=== PATIENT | male | born 1965 | race Caucasian/White ===

== ENCOUNTER 2019-01-10 22:06 | Observation (INO) | payer OTHER ==
[2019-01-10] MEDS ORDERED: SODIUM CHLORIDE 0.9% 1000 ML INFUS.BAG IV ONE (22:23)
[2019-01-10 22:51] LABS: BASO % 0.6 % (0-2.0); HEMOGLOBIN 13.4 GM/dL (11.7-16.9); LYMPH % 20.3 % (8-40); MCH 29.8 pg (25.7-33.7); MCHC 33.5 g/dl (32.0-35.9); MEAN PLT VOLUME 10.3 fl (7.5-11.1); MONO % 5.6 % (3.8-10.2); NEUT % 72.5 % (42.8-82.8); PLATELET COUNT 188 K/MM3 (134-434); RBC 4.49 M/mm3 (4.00-5.60); RDW 14.2 % (11.9-15.9); WHITE BLOOD COUNT 7.6 K/mm3 (4.0-10.0)
[2019-01-10] MEDS ORDERED: SODIUM CHLORIDE 0.9% 500 ML INFUS.BAG IV ONE (22:58)
[2019-01-10 23:04] LABS: INR 1.02 (0.83-1.09)
--- NOTE | 2019-01-10 23:27 | PDOC ---
History of Present Illness - General Chief Complaint: Syncope/Near Syncope Stated Complaint: PASSED OUT Time Seen by Provider: 01/10/19 22:46 History Source: Patient, Spouse Exam Limitations: No Limitations - History of Present Illness Initial Comments: 01/10/19 23:18 53M w/ pmh of HTN, HLD BIBA after losing consciousness w/ tremors, diaphoresis, jaw clenching at ~ 2100 at the dinner table. Episode was witnessed by the family members. No twitching of upper or lower extremities. As per discussion with 911, the daughter initiated chest compressions. Patient states that he was feeling lightheaded prior to LOC. Denies ALEJANDRO, dizziness, palpitations, SOB, CP. Had one prior episode of tremors w/ LOC ~15ys prior. Does not see a neurologist. Denies sick contacts. Denies significant cardiac history. No new medications Associated Symptoms: denies: chest pain, cough, diaphoresis, fever/chills, headaches, malaise, nausea/vomiting, shortness of breath, syncope Past History - Travel Traveled outside of the country in the last 30 days: No Close contact w/someone who was outside of country & ill: No - Past Medical History Allergies/Adverse Reactions: Allergies Allergy/AdvReac Type Severity Reaction Status Date / Time Penicillins Allergy Verified 01/10/19 22:34 Home Medications: Ambulatory Orders Fexofenadine HCl [Sue Allergy] 180 mg PO HS 01/10/19 Lisinopril [Prinivil] 20 mg PO DAILY 01/10/19 Anemia: No Asthma: No Cancer: No Cardiac Disorders: No CVA: No COPD: No CHF: No Dementia: No Diabetes: No GI Disorders: No Disorders: No HTN: Yes Hypercholesterolemia: Yes Liver Disease: No Seizures: No Thyroid Disease: No - Surgical History Abdominal Surgery: No - Family Disease History Family Disease History: Diabetes: Mother (HTN, breast CA), Heart Disease: Sister (heart disease), CA: Mother, Other: Mother - Suicide/Smoking/Psychosocial Hx Smoking History: Former smoker Hx Alcohol Use: No Drug/Substance Use Hx: No Substance Use Type: None Hx Substance Use Treatment: No Review of Systems - Review of Systems Able to Perform ROS?: Yes Is the patient limited Ecuadorean proficient: No Constitutional: Yes: Diaphoresis, Unexplained wgt Loss (20lbs in 2mo). No: Chills, Fever, Weakness HEENTM: No: Blurred Vision, Double Vision Respiratory: No: Cough, Shortness of Breath, SOB at Rest, Wheezing Cardiac (ROS): No: Chest Pain, Irregular Heart Rate, Palpitations ABD/GI: No: Constipated, Diarrhea, Nausea, Vomiting : No: Burning, Dysuria, Hematuria Musculoskeletal: No: Back Pain, Muscle Weakness Neurological: Yes: Tremors. No: Headache, Numbness, Unsteady Gait, Dizziness *Physical Exam - Vital Signs Last Vital Signs Temp Pulse Resp BP Pulse Ox 97.4 F L 57 L 18 110/81 100 01/10/19 22:15 01/10/19 22:15 01/10/19 22:15 01/10/19 22:15 01/10/19 22:35 - Physical Exam General Appearance: No: Apparent Distress HEENT: negative: Scleral Icterus (R), Scleral Icterus (L) Neck: positive: Supple. negative: Carotid bruit, Lymphadenopathy (R), Lymphadenopathy (L) Respiratory/Chest: positive: Lungs Clear, Normal Breath Sounds. negative: Respiratory Distress, Labored Respiration, Crackles, Rales, Stridor, Wheezing Cardiovascular: positive: Regular Rate, S1, S2, Bradycardia (HR 57). negative: Edema, Murmur, Tachycardia Gastrointestinal/Abdominal: positive: Soft. negative: Distended, Guarding Extremity: negative: Coldness, Pedal Edema Integumentary: positive: Dry, Warm Neurologic: positive: internal control consultant II-XII NML intact, Fully Oriented, Alert, Motor Strength 5/5. negative: Facial Droop, Numbness, Sensory Deficit, Finger to Nose , Confused ED Treatment Course - LABORATORY CBC & Chemistry Diagram: 01/10/19 22:44 01/10/19 22:44 - ADDITIONAL ORDERS Additional order review: Laboratory Results 01/10/19 22:44 PT with INR 12.00 INR 1.02 01/10/19 22:44 RBC 4.49 MCV 89.0 MCHC 33.5 RDW 14.2 MPV 10.3 Neutrophils % 72.5 Lymphocytes % 20.3 Monocytes % 5.6 Eosinophils % 1.0 Basophils % 0.6 - RADIOLOGY Radiology Studies Ordered: Category Date Time Status HEAD CT WITHOUT CONTRAST [CT] Stat CT Scan 01/10/19 22:57 Ordered - Medications Given in the ED: ED Medications Discontinued Medications Generic Name Dose Route Start Last Admin Trade Name Leonila PRN Reason Stop Dose Admin Sodium Chloride 1,000 ml 01/10/19 22:23 01/10/19 22:31 Normal Saline - IV 01/10/19 22:24 1,000 ml ONCE ONE Administration Medical Decision Making - Medical Decision Making 01/10/19 23:42 53M w/ HTN, HLD BIBA after witnessed syncope vs seizure lasting ~5mins - CBC -- no abn - CMP -- no abn - EKG -- sinus bradycardia - CXR -- no abn - fu CT Head 01/11/19 00:24 - Neurology paged - Fish Admitting paged 01/11/19 00:45 - CT Head -- prelim read for intracranial pathology - Fish On-Call awaiting Neurology call-back prior to accepting admission 01/11/19 00:57 - Neuro(Carmenza) agrees with tele admit, recommends MRI brain tomorrow. *DC/Admit/Observation/Transfer Diagnosis at time of Disposition: Seizure - Discharge Dispostion Condition at time of disposition: Stable Decision to Admit order: Yes - Referrals - Patient Instructions - Post Discharge Activity
[2019-01-10 23:29] LABS: ALBUMIN 3.9 g/dl (3.4-5.0); BILIRUBIN,TOTAL 0.3 mg/dL (0.2-1); BLOOD UREA NITROGEN 25.8 mg/dL (7-18); CALCIUM 8.6 mg/dL (8.5-10.1); POTASSIUM 3.9 mmol/L (3.5-5.1); TOT PROT 7.4 g/dl (6.4-8.2)
--- NOTE | 2019-01-11 00:40 | PN ---
Teaching Attending Note Name of Resident: Uvaldo Horan ATTENDING PHYSICIAN STATEMENT I saw and evaluated the patient. I reviewed the resident's note and discussed the case with the resident. I agree with the resident's findings and plan as documented. SUBJECTIVE: Patient is a 53 year old man with a PMH of HTN, Penicillin allergy and HLD who presents to the ER for dizziness after witnessed syncopal episode. 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 No twitching of upper or lower extremities. As per discussion with 911, the daughter initiated chest compressions. Patient states that he was feeling lightheaded prior to LOC. No associated fecal or urinary incontinence. As per , the patient is at his baseline now. The patient denies chest pain, shortness of breath, headache. Denies fever, chills, cough, nausea, vomiting, diarrhea and constipation. Denies dysuria, frequency, urgency and hematuria. No recent travel or sick contacts and denies illicit drug use or alcohol abuse. Patient has a family history of Epilepsy, DM, heart disease and breast cancer. OBJECTIVE: Alert and not orthostatic Vital Signs Period Temp Pulse Resp BP Sys/Montoya Pulse Ox Last 24 Hr 97.4 F 57-60 18 110-118/69-81 100-100 HEENT: No Jaundice, eye redness or discharge, PERRLA, EOMI. Normocephalic, atraumatic. External ears are normal and hearing is grossly intact. No nasal discharge. Neck: Supple, nontender. No palpable adenopathy or thyromegaly. No JVD Chest: Good effort. Clear to auscultation and percussion. Heart: Regular. No S3, rub or murmur Abdomen: Not distended, soft, nontender and no HSM. No rebound or guarding. Normal bowel sounds. Ext: Peripheral pulses intact. No leg edema. Skin: Warm and dry. No petechiae, rash or ecchymosis. Neuro: Alert. Oriented x3. CN 2-12 grossly intact. Sensation grossly intact in all four extremities and DTR are symmetric. Plantar reflexes are flexor. Normal gait. Psych: Appropriate mood and affect. Good insight. Home Medications Medication Instructions Recorded Fexofenadine HCl [Sue Allergy] 180 mg PO HS 01/10/19 Lisinopril [Prinivil] 20 mg PO DAILY 01/10/19 Abnormal Lab Results 01/10/19 22:44 BUN 25.8 H ASSESSMENT AND PLAN: 1. Syncope - History suggestive of a seizure. No acute pathology on preliminary reading of noncontrast head CT scan. No acute pathology on CXR. EKG shows sinus bradycardia with no significant ST-T wave changes. Will monitor him on telemetry , load him with Keppra; get carotid doppler, EEG, brain MRI/MRA, urine toxicology, ECHO and implement seizure and fall precautions. Do neurochecks. Consult neurology. 2. Hypertension - Restart suitable outpatient antihypertensive drugs when clinically appropriate. 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 Nonpharmacologic measures to control hypertension like weight loss , salt restriction and exercise discussed. Importance of adherence to treatment regimen and attainment of normotension emphasized. 3. DVT prophylaxis - Lovenox 40 mg SQ q 24 hours. 4. Advance directives - Full code
--- NOTE | 2019-01-11 01:14 | PDOC ---
Documentation entered by Claudia Franco SCRIBE, acting as scribe for Soni Ybarra MD. Soni Ybarra MD: This documentation has been prepared by the Salvador vergara Xhesika, SCRIBE, under my direction and personally reviewed by me in its entirety. I confirm that the documentation accurately reflects all work, treatment, procedures, and medical decision making performed by me. Attending Attestation - Resident Resident Name: Leonel Jacinto - ED Attending Attestation I have performed the following: I have examined & evaluated the patient, The case was reviewed & discussed with the resident, I agree w/resident's findings & plan, Exceptions are as noted - HPI HPI: 01/10/19 22:52 The patient is a 53 year old male with a significant PMH of who presents to the emergency department for dizziness s/p witnessed syncopal episode. 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 As per , the patient is at his baseline now. The patient denies chest pain, shortness of breath, headache. Denies fever, chills, cough, nausea, vomiting, diarrhea and constipation. Denies dysuria, frequency, urgency and hematuria. Allergies: Penicillins PCP: Patrizia Self - Physicial Exam PE: 01/11/19 01:07 awake alert lungs clear bilat heart rrr no mrg abd soft nt nd ext wwp no edema. no calf tenderness. head atraumatic. nuero alert oriented x 3. speech clear. 5/ 5 all four ext. 01/11/19 01:08 - Medical Decision Making 01/11/19 01:08 53 yo F M h/o HTN here with syncopal/ seizure episode. per pt they were eating dinner he was seated, suddenly head went back. had stiffeing of muscles that lasted few minutes. called 911 told her to open his mouth, when attempted mouth was stiff. following pt was sleepy and confused for while now at baseline. had similar episode 15 yrs prior, never saw nuerologist. had fu at a clinic wi EKG. presumably felt to be syncope at that time. no incontinence. just prior to event he described vision going black, and feeling like he lost control of his head with dizziness. differential siezure,/ syncope. plan ct head labs tele, ekg. ua tox screen. ct head negative. d/w dr howell, recommend mRI labs ua u tox. admited. signed out to admin team
--- NOTE | 2019-01-11 02:02 | HP ---
CHIEF COMPLAINT: loss of consciousness HISTORY OF PRESENT ILLNESS: Patient is a 53 yo M with a PMHx of HTN, HLD, BIBA for loss of consciousness while eating dinner with his family. He says he felt light headed and started blacking out about 5 minutes before the incident. He told his before he lost consciousness that he was not feeling well. His said he was down for at least 3 minutes. She denies shaking movements, tongue biting, or loss of bladder control. She said his eyes rolled back, and his jaw was very stiff. She does not recall if his arms were stiff. She also said he was very diaphoretic. She said after he regained consciousness, he was confused afterwards. He said a very similar event happened to him about 15 years ago but was told everything was ok. He currently denies symptoms. Denies CP, sob, nausea, vomiting, palpitations, dizziness, urinary symptoms, numbness, tingling, visual changes. Patient does not see a neurologist. In the ED he was given [address] Herr called and said he will see him in the morning. He recommended BRAIN Mri. Head Ct was unremarkable for acute changes. 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 When asked, says he works around [employer]. Family History: NIECE WITH EPILEPSY Allergies Penicillins Allergy (Verified 01/10/19 22:34) HOME MEDICATIONS: Home Medications Medication Instructions Recorded Fexofenadine HCl [Sue Allergy] 180 mg PO HS 01/10/19 Lisinopril [Prinivil] 20 mg PO DAILY 01/10/19 REVIEW OF SYSTEMS CONSTITUTIONAL: Absent: fever, chills, diaphoresis, generalized weakness, malaise, loss of appetite, weight change HEENT: Absent: rhinorrhea, nasal congestion, throat pain, throat swelling, difficulty swallowing, mouth swelling, ear pain, eye pain, visual changes CARDIOVASCULAR: Absent: chest pain, syncope, palpitations, irregular heart rate, lightheadedness , peripheral edema RESPIRATORY: Absent: cough, shortness of breath, dyspnea with exertion, orthopnea, wheezing, stridor, hemoptysis GASTROINTESTINAL: Absent: abdominal pain, abdominal distension, nausea, vomiting, diarrhea, constipation, melena, hematochezia GENITOURINARY: Absent: dysuria, frequency, urgency, hesitancy, hematuria, flank pain, genital pain NEUROLOGIC: dizziness, mental status changes Absent: headache, focal weakness or paresthesias, unsteady gait, seizure, bladder or bowel incontinence PHYSICAL EXAMINATION Vital Signs - 24 hr 01/10/19 01/10/19 01/10/19 22:15 22:35 23:47 Temperature 97.4 F L Pulse Rate 57 L Pulse Rate [ 60 Right Radial] Respiratory 18 Rate Blood Pressure 110/81 Blood Pressure 118/69 [Left Arm] O2 Sat by Pulse 100 100 100 Oximetry (%) GENERAL: a/o x 3, slow to answer questions. HEAD: Normal with no signs of trauma. EYES: Pupils equal, round and reactive to light, extraocular movements intact, injected conjunctica (says its chronic from allergies) EARS, NOSE, THROAT: oropharynx clear without exudates. Moist mucous membranes. NECK: supple without lymphadenopathy, JVD, or masses. LUNGS: Breath sounds equal, clear to auscultation bilaterally. No wheezes, and no crackles. No accessory muscle use. HEART: RRR, no MGR ABDOMEN: Soft, nontender, not distended, normoactive bowel sounds, no guarding, no rebound, no masses. LOWER EXTREMITIES: 2+ pulses, warm. No peripheral edema. NEUROLOGICAL: Cranial nerves II-XII intact. Walked patient, normal gait Laboratory Results - last 24 hr 01/10/19 01/10/19 01/10/19 22:44 22:44 22:44 WBC 7.6 RBC 4.49 Hgb 13.4 Hct 40.0 MCV 89.0 MCH 29.8 MCHC 33.5 RDW 14.2 Plt Count 188 MPV 10.3 Absolute Neuts (auto) 5.5 Neutrophils % 72.5 Lymphocytes % 20.3 Monocytes % 5.6 Eosinophils % 1.0 Basophils % 0.6 Nucleated RBC % 0 PT with INR INR Sodium 141 Potassium 3.9 Chloride 106 Carbon Dioxide 27 Anion Gap 8 BUN 25.8 H Creatinine 1.0 Est GFR (CKD-EPI)AfAm 97.77 Est GFR (CKD-EPI)NonAf 84.35 Random Glucose 106 Calcium 8.6 Total Bilirubin 0.3 AST 23 ALT 28 Alkaline Phosphatase 69 Creatine Kinase 191 Creatine Kinase Index 1.1 CK-MB (CK-2) 2.2 Troponin I < 0.02 Total Protein 7.4 Albumin 3.9 01/10/19 22:44 WBC RBC Hgb Hct MCV MCH MCHC RDW Plt Count MPV Absolute Neuts (auto) Neutrophils % Lymphocytes % Monocytes % Eosinophils % Basophils % Nucleated RBC % PT with INR 12.00 INR 1.02 Sodium Potassium Chloride Carbon Dioxide Anion Gap BUN Creatinine Est GFR (CKD-EPI)AfAm Est GFR (CKD-EPI)NonAf Random Glucose Calcium Total Bilirubin AST ALT Alkaline Phosphatase Creatine Kinase Creatine Kinase Index CK-MB (CK-2) Troponin I Total Protein Albumin ASSESSMENT/PLAN: 53 yo M with a PMHx of HTN, HLD, BIBA for loss of consciousness #Syncope -r/o Seizure -hx of similar episode in the past, niece with epilepsy -Head CT unremarkable -MRI brain w/ contrast ordered -Neuro consulted: Dr. Herr -EEG -Loading dose of keppra 1000mg ONE TIME -Seizure precautions -Urine toxicology -echo -carotids -tele monitoring -neuro checks q1h -repeat 2nd set trops -negative orthostats (after fluids given) #HTN -cont home meds #FEN -no iv fluids -monitor lytes -sodium diet #Dvt -lovenox Visit type - Emergency Visit Emergency Visit: Yes ED Registration Date: 01/11/19 Care time: The patient presented to the Emergency Department on the above date and was hospitalized for further evaluation of their emergent condition. - New Patient This patient is new to me today: Yes Date on this admission: 01/13/19 - Critical Care Critical Care patient: No ATTENDING PHYSICIAN STATEMENT I saw and evaluated the patient. I reviewed the resident's note and discussed the case with the resident. I agree with the resident's findings and plan as documented. SUBJECTIVE: OBJECTIVE: ASSESSMENT AND PLAN:
[2019-01-11] MEDS ORDERED: levETIRAcetam 500 MG TABLET (FP) PO ONE (02:32)
[2019-01-11 04:23] VITALS: BMI 29.5
[2019-01-11] MEDS: ENOXAPARIN NA (PORCINE) 40 MG/0.4 ML DISP.SYRIN SQ SCH (09:10)
[2019-01-11] MEDS: LISINOPRIL 20 MG TABLET (FP) PO SCH (09:10)
--- NOTE | 2019-01-11 09:13 | CON.NEURO ---
Consult Consult Specialty:: Carmenza Referred by:: ER - History of Present Illness History of Present Illness: 53-year-old right-handed man originally from [place] presents to the ospital yesterday with a chief complaint of an episode of altered sensorium. 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 Patient with a family history of seizure in his knees was on medication patient had a history 3 of episodes similar to this many many years ago. Patient denies any staring episode patient had stiffness in his joke with altered sensorium no shaking no generalized tonic-clonic movement no urinary incontinence no tongue biting. Patient wasprotein to [facility] CAT scan of the head revealed no evidence for acute pathology blood work and chemistries were normal patient was hemodynamically stable patient was admitted to telemetry for further treatment and management overnight no episode of recurrence. - History Source History Provided By: Patient Limitations to Obtaining History: No Limitations - Alcohol/Substance Use Hx Alcohol Use: No - Smoking History Smoking history: Former smoker Have you smoked in the past 12 months: No Home Medications - Allergies Allergies/Adverse Reactions: Allergies Allergy/AdvReac Type Severity Reaction Status Date / Time Penicillins Allergy Verified 01/10/19 22:34 - Home Medications Home Medications: Ambulatory Orders Fexofenadine HCl [Sue Allergy] 180 mg PO HS 01/10/19 Lisinopril [Prinivil] 20 mg PO DAILY 01/10/19 Family Disease History - Family Disease History Family History: Denies (cva) Review of Systems - Review of Systems Neurological: reports: Headache, Incoordination, Numbness Physical Exam-Neuro Vital Signs: Vital Signs Temperature 98.6 F 01/11/19 08:42 Pulse Rate 61 01/11/19 08:42 Respiratory Rate 16 01/11/19 08:42 Blood Pressure 134/79 01/11/19 08:42 O2 Sat by Pulse Oximetry (%) 99 01/11/19 08:42 Constitutional: Yes: Well Nourished Neck: Yes: WNL Labs: CBC, BMP 01/10/19 22:44 01/10/19 22:44 INR, PTT INR 1.02 (0.83-1.09) 01/10/19 22:44 - Neuro Exam Level Of Consciousness: Yes: Oriented to Person, Oriented to Place, Oriented to Time Eyes: Yes: PERRLA Speech: WNL Dominant Hand: Right Cranial Nerves II-XII Intact: Yes Gag: Present DTR's: 1+ Left Bicep, 1+ Right Bicep, 1+ Left Tricep, 1+ Right Tricep Response to light touch: Normal Response to pain prick: Normal Response to temperature: Normal Motor Strength: 3/5: Left Arm, Right Arm, Left Leg, Right Leg Gait: Deferred Imaging - Results Cat Scan: Image Reviewed Problem List - Problems (1) Seizure Assessment/Plan: 1. Neuro checks every 1 hour. 2. MRI of the brain with no contrast seizure protocol. 3. Ativan when necessary seizure. 4. No antiseizure medication. 5. Monitor for cardiac arrhythmia Code(s): R56.9 - UNSPECIFIED CONVULSIONS
--- NOTE | 2019-01-11 12:20 | PN ---
Progress Note, Physician Chief Complaint: He is better now and has no symptoms no dizziness and no fever or chills History of Present Illness: Patient is a 53 yo M with a PMHx of HTN, HLD, BIBA for loss of consciousness while eating dinner with his family. He says he felt light headed and started blacking out about 5 minutes before the incident. He told his before he lost consciousness that he was not feeling well. His said he was down for at least 3 minutes. She denies shaking movements, tongue biting, or loss of bladder control. She said his eyes rolled back, and his jaw was very stiff. She does not recall if his arms were stiff. She also said he was very diaphoretic. She said after he regained consciousness, he was confused afterwards. He said a very similar event happened to him about 15 years ago but was told everything was ok. He currently denies symptoms. Denies CP, sob, nausea, vomiting, palpitations, dizziness, urinary symptoms, numbness, tingling, visual changes. Patient does not see a neurologist. In the ED he was given [address] Herr called and said he will see him in the morning. He recommended BRAIN Mri. Head Ct was unremarkable for acute changes. - Current Medication List Current Medications: Active Medications Enoxaparin Sodium (Lovenox -) 40 mg SQ DAILY [facility] Last Admin: 01/11/19 09:10 Dose: 40 mg Lisinopril (Prinivil) 20 mg PO DAILY [facility] Last Admin: 01/11/19 09:10 Dose: 20 mg - Objective Vital Signs: Vital Signs Temperature 98.6 F 01/11/19 08:42 Pulse Rate 61 01/11/19 08:42 Respiratory Rate 16 01/11/19 08:42 Blood Pressure 134/79 01/11/19 08:42 O2 Sat by Pulse Oximetry (%) 99 01/11/19 08:42 Constitutional: Yes: Well Nourished Eyes: Yes: Conjunctiva Clear HENT: Yes: Atraumatic Neck: Yes: Supple Cardiovascular: Yes: Regular Rate and Rhythm Respiratory: Yes: CTA Bilaterally Gastrointestinal: Yes: Normal Bowel Sounds Breast(s): Yes: WNL Musculoskeletal: Yes: WNL Extremities: Yes: WNL Edema: No Neurological: Yes: WNL Labs: CBC, BMP 01/10/19 22:44 01/10/19 22:44 INR, PTT INR 1.02 (0.83-1.09) 01/10/19 22:44 Problem List - Problems (1) Syncope Assessment/Plan: will do mri of brain and eeg seen dr herr neurologist and d/w pt in in detail his carotid sono is ok and ct head is ok as well d/w his as well Code(s): R55 - SYNCOPE AND COLLAPSE
[2019-01-11 12:48] LABS: URINE APPEARANCE CLEAR; URINE BILIRUBIN NEGATIVE (NEGATIVE); URINE COLOR YELLOW; URINE GLUCOSE (UA) NEGATIVE (NEGATIVE); URINE KETONE NEGATIVE (NEGATIVE); URINE LEUK ESTERASE NEGATIVE (NEGATIVE); URINE NITRITE NEGATIVE (NEGATIVE); URINE PROTEIN NEGATIVE (NEGATIVE); URINE UROBILINOGEN 0.2 mg/dL (0.2-1.0)
[2019-01-11 14:52] LABS: COCAINE, UR NEGATIVE ng/ml (CUTOFF=300); METHADONE, UR NEGATIVE ng/ml (CUTOFF=300); OPIATES, URI NEGATIVE ng/ml (CUTOFF=300); PHENCYCLIDINE,URINE NEGATIVE ng/ml (CUTOFF=25); URINE AMPHETAMINES NEGATIVE ng/ml (CUTOFF=500); URINE BARBITURATES NEGATIVE ng/ml (CUTOFF=200); URINE BENZODIAZEPINES NEGATIVE ng/ml (CUTOFF=200)
[2019-01-12 07:35] LABS: BASO % 0.6 % (0-2.0); EOS % 1.3 % (0-4.5); HEMATOCRIT 39.1 % (35.4-49); HEMOGLOBIN 13.3 GM/dL (11.7-16.9); LYMPH % 29.4 % (8-40); MCH 30.4 pg (25.7-33.7); MCHC 34.2 g/dl (32.0-35.9); MEAN CELL VOLUME 88.8 fl (80-96); MEAN PLT VOLUME 11.3 fl (7.5-11.1); MONO % 6.8 % (3.8-10.2); NEUT % 61.9 % (42.8-82.8); PLATELET COUNT 174 K/MM3 (134-434); RDW 14.5 % (11.9-15.9); WHITE BLOOD COUNT 5.9 K/mm3 (4.0-10.0)
[2019-01-12 07:55] LABS: ALBUMIN 3.3 g/dl (3.4-5.0); ALK PHOS 59 U/L (45-117); ANION GAP 6 MMOL/L (8-16); BILIRUBIN,TOTAL 0.4 mg/dL (0.2-1); BLOOD UREA NITROGEN 18.2 mg/dL (7-18); CALCIUM 8.4 mg/dL (8.5-10.1); CHLORIDE 106 mmol/L (98-107); CO2 30 mmol/L (21-32); GLUCOSE,RANDOM 93 mg/dL (74-106); MAGNESIUM 2.2 mg/dL (1.8-2.4); PHOSPHOROUS 2.8 mg/dL (2.5-4.9); POTASSIUM 4.2 mmol/L (3.5-5.1); SGOT/AST 14 U/L (15-37); SGPT/ALT 24 U/L (13-61); SODIUM 143 mmol/L (136-145); TOT PROT 6.7 g/dl (6.4-8.2)
[2019-01-12] MEDS: ENOXAPARIN NA (PORCINE) 40 MG/0.4 ML DISP.SYRIN SQ SCH (09:12)
[2019-01-12] MEDS: LISINOPRIL 20 MG TABLET (FP) PO SCH (09:13)
--- NOTE | 2019-01-12 11:37 | EKG ---
Test Reason : Blood Pressure : / mmHG Vent. Rate : 057 BPM Atrial Rate : 057 BPM P-R Int : 172 ms QRS Dur : 086 ms QT Int : 434 ms P-R-T Axes : 034 013 026 degrees QTc Int : 422 ms SINUS BRADYCARDIA MINIMAL VOLTAGE CRITERIA FOR LVH, MAY BE NORMAL VARIANT BORDERLINE ECG NO PREVIOUS ECGS AVAILABLE Confirmed by TRACEE MORRIS MD ([id number]) on 01/12/2019 11:37:26 AM Referred By: Confirmed By:TRACEE MORRIS MD
[2019-01-12 13:08] VITALS: BP 149/83; PULSE 71; TEMP 98.5
--- NOTE | 2019-01-12 13:54 | DS ---
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 CBC, [facility] 01/12/19 05:57 01/12/19 05:57 MRI of brain is normal eeg is ordered but pt doesnt want to stay and wants to go home will do out patient and no need for any new medication, he is going to f/u with me in office and will continue the lisinopril daily, Labs: CBC, [facility] 01/12/19 05:57 01/12/19 05:57 Discharge Summary Reason For Visit: SEIZURE Current Active Problems Seizure (Acute) Syncope (Acute) - Instructions Diet, Activity, Other Instructions: full activity and resume all activates, follow up with me on SundayJanuary 14 430 pm Disposition: HOME - Home Medications Comprehensive Discharge Medication List: Ambulatory Orders Fexofenadine HCl [Sue Allergy] 180 mg PO HS #30 tablet 01/12/19 Lisinopril [Prinivil] 20 mg PO DAILY #30 tablet 01/12/19
== END 2019-01-12 16:21 | disposition home or self-care (01) ==
LOC: JER 22:06 → JERBED 01-11 00:19 → INTOOBSV 01-11 00:19 → J4W 01-11 02:24
PROVIDERS: ADMIT Internal Medicine; ATTEND Internal Medicine
PROC: 3E0337Z Introduction of Electrolytic and Water Balance Substance into Peripheral Vein, Percutaneous Approach (ICD-10-PCS; principal; 2019-01-11)
PROC: 3E013GC Introduction of Other Therapeutic Substance into Subcutaneous Tissue, Percutaneous Approach (ICD-10-PCS; 2019-01-11)
DX: G40.89 Other seizures (principal); R42 Dizziness and giddiness; I10 Essential (primary) hypertension; E78.5 Hyperlipidemia, unspecified; Z88.0 Allergy status to penicillin; Z87.891 Personal history of nicotine dependence
CPT/HCPCS: 36415; 70450-TC; 70552-TC; 71045-TC-FY; 80053; 80307; 81003; 82550; 82553; 83605; 83735; 84100; 84484; 85025; 85610; 93005; 93010; 93880-TC; 96372; 99285-25; A9579; G0378; J7030